=== PATIENT | female | born 1960 | race Caucasian/White ===

== ENCOUNTER 2018-04-02 09:41 | Outpatient (CLI) | payer MEDICAID, SELFPAY ==
[2018-04-02 11:03] LABS: Glucose 104 mg/dL (70-100)
== END 2018-04-02 09:42 ==
PROVIDERS: PCP General Practice; Visit Provider General Practice
DX: R73.09 Other abnormal glucose (principal)
CPT/HCPCS: 36415; 82947

== ENCOUNTER 2018-04-11 15:04 | Outpatient (REF) | payer MEDICAID, SELFPAY ==
--- NOTE | 2018-04-11 14:00 | PAPFT_PTH ---
PATIENT: Rochelle Garcia LOC: [facility] U#:[id number] AGE/SX: 57/F ROOM: RE04/11/[address]: Larisa Huang NP : 1960 BED: DIS: 04/11/2018 SPEC #: [id number] RECD: 04/11/18 17:35 STATUS: SOFY BUTCHER #: [id number] JOSE ANTONIO: 04/11/18 14:[address]: Larisa Huang NP DEPT: [facility] Cytology RECD BY: Lisa Rob ENTERED: 04/11/18 17:35 SP TYPE: PAPFT OTHR DR: Sharath Hoyos Tissues: 1 - CX/ENDOCX FOR PAP SMEARS Procedures: PAP THIN PREP/UVM Screening HPV DNA PROBE Comments: [id number]
== END 2018-04-11 15:05 ==
LOC: LBN 15:04
PROVIDERS: PCP General Practice; Visit Provider Nurse Practitioner Women's Health
DX: Z12.4 Encounter for screening for malignant neoplasm of cervix (principal); Z11.51 Encounter for screening for human papillomavirus (HPV)
CPT/HCPCS: 88142; 87624

== ENCOUNTER 2018-04-21 02:27 | Outpatient (CLI) | payer MEDICAID, SELFPAY ==
--- NOTE | 2018-04-21 11:55 | DI.REPORT_ITS ---
SYMPTOM/DIAGNOSIS: SCREENING, Z12.31 MAMMOGRAM: Mammograms were interpreted according to the usual protocol including computer analysis with CAD system, tomosynthesis and C view imaging. Comparison with prior examinations. Breast density B. No masses or microcalcifications are seen. There is nothing to suggest malignancy. IMPRESSION: Negative mammogram. Routine screening is recommended. Category I. MQSA ASSESSMENT OF FINDINGS: Negative. Category 1. Patient will receive a letter notifying them of these results. BI-RADS category B. There are scattered areas of fibroglandular density.
== END 2018-04-21 02:28 ==
PROVIDERS: PCP General Practice; Visit Provider Nurse Practitioner Women's Health
DX: Z12.31 Encounter for screening mammogram for malignant neoplasm of breast (principal)
CPT/HCPCS: 77063; 77067; 97802

== ENCOUNTER 2018-05-13 11:58 | Outpatient (CLI) | payer MEDICAID, SELFPAY ==
--- NOTE | 2018-05-13 12:00 | NS.NUTBLAN_ITS ---
Rochelel returns for follow up for weight management nutrition counseling. She reports that she notices her clothes are fitting more loosely. She has gone swimming four times since our last visit three weeks ago. She has been more mindful of her portions ans she reports that she does not go back for seconds. She states she is using the plate method as best as possible. She reports that she has had to eliminate ice cream otherwise she just has too much. Her weight today is stable at 268.8 lbs. We discussed that sometimes inches are lost before pounds. She states she is not discouraged. She reports that she feels better and she can feel the change in her body throughout her waist. She would like to return for follow up to help keep her accountable to someone. She would like to continue improving on the same action plans. Provided her with a portion plate for home as she said it would be helpful to her. Will continue to monitor her progress. Will evaluate her nutrition care plan and adjust accordingly.
== END 2018-05-13 12:18 ==
PROVIDERS: PCP General Practice; Visit Provider Dietitian, Registered
DX: E66.8 Other obesity (principal); Z68.43 Body mass index [BMI] 50.0-59.9, adult; Z71.3 Dietary counseling and surveillance
CPT/HCPCS: 97803

== ENCOUNTER 2018-06-23 11:52 | Outpatient (CLI) | payer MEDICAID, SELFPAY | END 2018-06-23 12:12 | PROVIDERS: PCP General Practice; Visit Provider General Practice | DX: I10 Essential (primary) hypertension (principal); R73.01 Impaired fasting glucose | CPT/HCPCS: 36415; 80051; 82947; 84520; 82565 ==

== ENCOUNTER 2019-10-21 10:49 | Outpatient (CLI) | payer MEDICAID, SELFPAY ==
[2019-10-21 11:26] LABS: Hemoglobin A1C 5.9 % (3.8-5.6)
[2019-10-21 11:52] LABS: ALT 25 U/L (14-59); AST 16 U/L (15-37); Albumin 3.6 g/dL (3.4-5.0); Alkaline Phosphatase 92 U/L (46-116); Anion Gap 7.6 mmol/L (3-11); BUN 12 mg/dL (7-18); Bilirubin, Total 0.5 mg/dL (0.2-1.0); CO2 29.4 mmol/L (21.0-32.0); CREATININE 0.69 mg/dL (0.55-1.02); Calculated LDL 182 mg/dL (<100); Chloride 104 mmol/L (98-107); Cholesterol 287 mg/dL (<200); Glucose 111 mg/dL (74-106); HDL Cholesterol 54 mg/dL (40-60); Potassium 4.5 mmol/L (3.5-5.1); Sodium 141 mmol/L (136-145); Total Protein 6.6 g/dL (6.4-8.2); Triglyceride 255 mg/dL (<150)
[2019-10-21 11:57] LABS: TSH (W/Ref FT4) 3.56 uIU/mL (0.36-3.74)
== END 2019-10-21 11:09 ==
PROVIDERS: PCP Nurse Practitioner; Visit Provider Nurse Practitioner
DX: E78.5 Hyperlipidemia, unspecified (principal); I10 Essential (primary) hypertension; E11.9 Type 2 diabetes mellitus without complications; E66.01 Morbid (severe) obesity due to excess calories; R73.01 Impaired fasting glucose
CPT/HCPCS: 36415; 80053; 80061; 83036; 84443

== ENCOUNTER 2020-01-12 12:26 | Outpatient (CLI) | payer MEDICAID, SELFPAY ==
--- NOTE | 2020-01-12 11:50 | DI.RAD_ITS ---
EXAM: XR KNEE RT 2V AP,LAT CLINICAL HISTORY: bilateral knee pain. TECHNIQUE: 2D digital imaging was performed. COMPARISON: CR XR KNEE LT 2V AP,LAT from 01/12/2020 FINDINGS: BONES: No acute fracture is present. Periarticular spurring is seen involving all 3 joint compartment s. JOINTS: The knee is normally aligned. Moderate narrowing of the medial femoral tibial joint space is present. SOFT TISSUE: Normal. IMPRESSION: Moderate degenerative changes of the right knee. DATA REPOSITORY: RADIATION DOSE DELIVERED:
--- NOTE | 2020-01-12 11:50 | DI.RAD_ITS ---
EXAM: XR KNEE LT 2V AP,LAT CLINICAL HISTORY: bilateral knee pain. TECHNIQUE: 2D digital imaging was performed. COMPARISON: No exams were available for comparison FINDINGS: BONES: No acute fracture is present. No bony destructive lesion is seen. Periarticular spurring is s een involving the patellofemoral joint in the lateral femoral tibial joint. JOINTS: The knee is normally aligned. There is moderate narrowing of the medial femoral tibial joint space. A small joint effusion is present. SOFT TISSUE: Normal. IMPRESSION: Degenerative changes of the left knee. DATA REPOSITORY: RADIATION DOSE DELIVERED:
== END 2020-01-12 12:46 ==
PROVIDERS: PCP Nurse Practitioner; Referring Provider Nurse Practitioner; Visit Provider Physician Assistant Surgical
DX: M25.561 Pain in right knee (principal); M25.562 Pain in left knee; M25.462 Effusion, left knee; M17.0 Bilateral primary osteoarthritis of knee
CPT/HCPCS: 73560

== ENCOUNTER 2020-03-02 01:27 | Outpatient (CLI) | payer MEDICAID, SELFPAY ==
--- NOTE | 2020-03-02 14:45 | DI.MAMMO_ITS ---
EXAM: MAMMO SCREENING CLINICAL HISTORY: screening, Z12.39 TECHNIQUE: Mammograms were interpreted according to the usual protocol including computer analysis w [employer] CAD system, tomosynthesis and C-view imaging. COMPARISON: 2014 and 2017 FINDINGS: The breasts are composed of scattered fibroglandular densities, Breast Density category B. There has been interval increase in size and density of a previously noted area of nodularity in thes e upper outer quadrant of the left breast. The appearance on previous exams suggested a lymph node. It now has a lobulated border and has increased significantly in size, measuring 11 millimeters in d iameter. There are no associated microcalcifications. No additional abnormalities are seen. Oil cy sts are again noted in the right breast. No suspicious microcalcifications are seen. No skin thickening is seen. There has been no significant change of the right breast from prior exams. IMPRESSION: BI-RADS Category 0 - Assessment Incomplete: Need additional imaging evaluation. Spot compression views and ultrasound are requested for further evaluation of a mass in the superior left breast. Breast Density Category B, scattered fibroglandular densities.
== END 2020-03-02 01:47 ==
PROVIDERS: PCP Nurse Practitioner; Visit Provider Nurse Practitioner
DX: Z12.31 Encounter for screening mammogram for malignant neoplasm of breast (principal); R92.8 Other abnormal and inconclusive findings on diagnostic imaging of breast
CPT/HCPCS: 77063; 77067

== ENCOUNTER 2020-03-11 03:50 | Outpatient (CLI) | payer MEDICAID, SELFPAY ==
--- NOTE | 2020-03-11 | DI.MAMMO_ITS ---
EXAM: MG MAMMO SCREEN CALL BACK UNI CLINICAL HISTORY: F/U MAMMO,INCREASE IN SIZE AND DENSITY OF PREV NODULARITY TECHNIQUE: Mammograms were interpreted according to the usual protocol including computer analysis w [employer] CAD system, tomosynthesis and C-view imaging. COMPARISON: FINDINGS: Additional mammographic views of the left breast and left breast ultrasound are interpreted in conjun ction. These examinations were obtained to evaluate mass of the upper outer quadrant of left breast seen on recent mammogram. Additional mammographic views confirm a solid mass with lobulated or micro lobulated contour. The breast ultrasound shows a 12 millimeter in diameter hypoechoic mass possibly containing some cystic areas, the mass is avascular, again a microlobulated contour is noted. IMPRESSION: Indeterminate 12 millimeter left upper outer quadrant mass, suspicious for neoplasm. Additional eval uation with ultrasound guided biopsy suggested. BI-RADS Category 4 - Suspicious Abnormality: Biopsy should be considered Breast Density - Category B - Scattered areas of fibroglandular density
== END 2020-03-11 04:10 ==
PROVIDERS: PCP Nurse Practitioner; Visit Provider Nurse Practitioner
DX: R92.8 Other abnormal and inconclusive findings on diagnostic imaging of breast (principal)
CPT/HCPCS: 76642; 77063; 77067

== ENCOUNTER 2020-03-22 00:57 | Outpatient (CLI) | payer MEDICAID, SELFPAY ==
--- NOTE | 2020-03-22 | DI.US_ITS ---
EXAM: US NEEDLE LOCAL BREAST WO RAD CLINICAL HISTORY: LT BREAST MASS. Right Breast. Left Breast. TECHNIQUE: Ultrasound was provided for Dr. Marte for guidance with performing a left breast biopsy . FINDINGS: Previously noted cystic lobulated lesion is again noted in the superior left breast. Post biopsy im ages no longer show the lesion. Please see procedure note for details. COMPARISON: US US BREAST LT LIMITED from 03/11/2020 MG MG MAMMO SCREEN CALL BACK UNI from 03/11/2020 IMPRESSION: Successful Ultrasound-guided Breast Biopsy.
--- NOTE | 2020-03-22 13:20 | BREAST_PTH ---
PATIENT: Rochelle Garcia LOC: [facility] U#:[id number] AGE/SX: 59/F ROOM: RE03/22/[address]: Sana Marte MD : 1960 BED: DIS: 03/22/2020 SPEC #: [id number] RECD: 03/22/20 17:47 STATUS: SOFY REShilpi #: [id number] JOSE ANTONIO: 03/22/20 13:[address]: Sana Marte DEPT: Surgical Specimen RECD BY: Lisa Rob ENTERED: 03/22/20 17:47 SP TYPE: Breast OTHR DR: Carolina Evans APRN Tissues: 1 - BREAST BX NEEDLE Procedures: GROSS AND MICRO LEVEL 4 Comments: [id number]
--- NOTE | 2020-03-22 14:24 | HPE_ITS ---
Date of service: 03/22/20 Time of Service: 13:00 Assessment and Plan Assessment and plan (1) Left breast mass: Status: Acute Assessment and plan: A\\ Left Breast mass P\\ Core needle biopsy under US guidence It was explained to the patient. Risks benefits and alternatives were reviewed. Complications were reviewed. Questions were answered to her satisfaction she wished to proceed. No guarantees were given or implied. History of Present Illness History of Present Illness Chief Complaint: Left Breast Lesion Narrative: Mrs. Garcia is a pleasant 59 year old female who was noted to had a lubulated lesion in the UOQ of the left Breast on Mammogram and US. She has never had a Breast lesion before. She has no 1st degree relatives with breast cancer. She does have a cousin who had a bilateral mastectomy for breast cancer at an earlier age. She denies any changes in the skin on the left breast or any nipple discharge. Review of Systems Cardiovascular Cardiovascular: Denies chest pain, Denies chest pain at rest, Denies irregular heart rhythm, Denies dyspnea and Denies dyspnea on exertion Respiratory Respiratory: Reports cough, Denies dyspnea and Denies dyspnea on exertion Gastrointestinal Gastrointestinal: Reports as per HPI Genitourinary Genitourinary: Denies dysuria, Reports urinary incontinence and Denies urinary urgency Integumentary/Breasts Skin/Breast: Reports system reviewed and no additional complaints, except as documented Endocrine Endocrine: Reports system reviewed and no additional complaints, except as documented Hematologic/Lymphatic Hematologic/Lymphatic: Denies easy bruising and Denies lymphadenopathy [facility] Medical History (Updated 03/14/20 @ 13:57 by Carolina Evans NP) Colon cancer screening declined (Acute) Daytime somnolence (Acute) Hyperlipidemia (Acute) Hypertension (Chronic) Left breast mass (Acute) Obesity, morbid, BMI 50 or higher Pre-diabetes (Acute) Snoring (Acute) Surgical History History of carpal tunnel release (Acute) x2 History of section (Chronic) x2 History of tonsillectomy and adenoidectomy (Acute) Social History (Updated 01/11/20 @ 16:07 by Aide Suarez LPN) Smoking/Tobacco Use Status: Former Tobacco Use Quit Date: 05/26/87 Pack-years: 12 Tobacco: How many years used: 6 Smoking risk assessment performed?: Yes Alcohol Intake: current Alcohol Intake frequency: a few times a week Alcohol type: beer and wine Drug use: Never Substance use type: does not use Adopted: No Caregiver/Support person: No Foster care: No Household members: spouse and children Housing: house Number of Children: 2 Do you need help understanding health information?: Often Sexually active: No Do you think of yourself as: straight/heterosexual Current gender identity: female What is your relationship status?: Panel score (0-1 are the most socially isolated patients): 1 What type of physical activity do you participate in: none Seatbelt use: always Meds Home Medications and Allergies Home Medications Medication Instructions Recorded Confirmed Type meloxicam 15 mg tablet 15 mg PO DAILY #90 tab 01/12/20 02/23/20 Rx labetalol 100 mg tablet 150 mg PO BID #90 tab 03/14/20 03/14/20 Rx Allergies Allergy/AdvReac Type Severity Reaction Status Date / Time hydrochlorothiazide Allergy Skin Rash Verified 03/14/20 13:40 [From Hyzaar] losartan potassium Allergy Skin Rash Verified 03/14/20 13:40 [From Hyzaar] Exam Chest Chest: normal inspection of the chest Breast inspection: normal inspection of the breasts Breast palpation: normal palpation of the breasts and no axillary lymphadenopathy Procedures Other Procedure Description/Findings: Pre-op Dx: left Breast Mass Post-op Dx: same Surgeon: Prem Marte MD Anesthesia: Local anesthesia with 1% Lidocaine Blood loss: 2 cc Specimen: Core needle biopsy Complications: no immediate complications Procedure: After informed consent was obtained the patient was placed in a supine position. US was done of the Breast and the lesion was localized by the US tech. The skin was cleaned with alcohol and infiltrated with the above local anesthetic. The skin was then prepped. An incision was made with an 11 blade. Using a 14 gauge core needle 2 specimens were removed and placed on telfa and placed in formalin. After the second core needle biopsy was done the lesion disappeared. The skin was cleaned and dried and a band aid was applied. The patient tolerated the procedure well and there were no immediate complications.
== END 2020-03-22 01:17 ==
PROVIDERS: PCP Nurse Practitioner; Visit Provider Surgery
DX: N60.32 Fibrosclerosis of left breast (principal)
CPT/HCPCS: 19083; 88305; NC; 76942

== ENCOUNTER 2020-04-07 03:15 | Outpatient (CLI) | payer MEDICAID, SELFPAY ==
[2020-04-07 12:02] LABS: Hemoglobin A1C 5.8 % (3.8-5.6)
[2020-04-07 12:15] LABS: Calculated LDL 182 mg/dL (<100); Cholesterol 281 mg/dL (<200); HDL Cholesterol 56 mg/dL (40-60); Triglyceride 219 mg/dL (<150)
== END 2020-04-07 03:35 ==
PROVIDERS: PCP Nurse Practitioner; Visit Provider Nurse Practitioner
DX: E78.5 Hyperlipidemia, unspecified (principal); E11.9 Type 2 diabetes mellitus without complications; I10 Essential (primary) hypertension
CPT/HCPCS: 36415; 80061; 83036

== ENCOUNTER 2020-06-03 03:51 | Outpatient (CLI) | payer MEDICAID, SELFPAY ==
--- NOTE | 2020-06-03 07:00 | DI.US_ITS ---
EXAM: US BREAST LT COMPLETE CLINICAL HISTORY: H/O Lt Breast mass, disapPeared after bx, ? recurrence,N63.20 TECHNIQUE: Ultrasound performed using standard protocol. COMPARISON: US US NEEDLE LOCAL BREAST WO RAD from 03/22/2020 FINDINGS: Ultrasound was performed to evaluate previously biopsied lobulated lesion of the left breast in the 1 2 o'clock position. Comparison with prior ultrasound of March 22 shows reoccurrence of the lesion, this measures about 5 x 10 by 8 millimeters in diameter, as compared to about 7 x 10 x 9 millimeters on. This remains an indeterminate lesion with low to intermediate echogenicity, multiple visible sep tations, and little if any visible vascularity. IMPRESSION: Persistence or recurrence of previously biopsied left breast mass as described above. DATA REPOSITORY:
== END 2020-06-03 04:11 ==
PROVIDERS: PCP Nurse Practitioner; Visit Provider Surgery
DX: N63.25 Unspecified lump in the left breast, overlapping quadrants (principal)
CPT/HCPCS: 76642

== ENCOUNTER 2020-06-23 01:21 | Outpatient (CLI) | payer MEDICAID, SELFPAY ==
--- NOTE | 2020-06-23 08:00 | DI.US_ITS ---
EXAM: US AXILLA LT CLINICAL HISTORY: left Breast mass, r/o axillary lymphadenopathy,N63.20 TECHNIQUE: Ultrasound performed using standard protocol. COMPARISON: US US BREAST LT COMPLETE from 06/03/2020 FINDINGS: Scanning of the left axilla was performed. There are multiple visualized lymph nodes. The largest m easures about 35 x 14 x 9 millimeters in diameter and shows normal morphology. No additional axillar y mass identified. IMPRESSION: Nonspecific appearance left axillary lymph nodes, the largest node is 35 millimeters in greatest diam eter and shows normal morphology. Malignancy not excluded the basis this examination alone. DATA REPOSITORY:
== END 2020-06-23 01:41 ==
PROVIDERS: PCP Nurse Practitioner; Visit Provider Surgery
DX: N63.20 Unspecified lump in the left breast, unspecified quadrant (principal); R59.0 Localized enlarged lymph nodes
CPT/HCPCS: 76642

== ENCOUNTER 2020-09-16 01:14 | Outpatient (CLI) | payer MEDICAID, SELFPAY ==
[2020-09-18 10:22] LABS: COVID-19 RT-PCR Result NEGATIVE (Negative)
== END 2020-09-16 01:34 ==
PROVIDERS: PCP Nurse Practitioner; Visit Provider Nurse Practitioner
DX: Z11.52 Encounter for screening for COVID-19 (principal); Z01.818 Encounter for other preprocedural examination
CPT/HCPCS: U0003

== ENCOUNTER 2020-11-15 03:51 | Outpatient (CLI) | payer MEDICAID, SELFPAY ==
[2020-11-15 14:51] LABS: HCT 46.5 % (36.0-46.0); HGB 15.4 g/dL (11.2-15.7); MCH 28.6 pg (27.0-33.0); MCHC 33.1 % (32.0-36.0); MCV 86.4 fL (80-95); MPV 9.4 fL (8.0-11.0); Platelet Count 282 10^3/uL (130-400); RBC 5.38 10^6/uL (3.93-5.22); RDW 12.5 % (11.7-14.6); RDW-SD 39.5 fL; WBC 6.64 10^3/uL (4.4-10.8)
[2020-11-15 15:30] LABS: Hemoglobin A1C 5.8 % (<5.7)
[2020-11-15 16:01] LABS: ALT 31 U/L (14-59); AST 20 U/L (15-37); Albumin 3.9 g/dL (3.4-5.0); Alkaline Phosphatase 88 U/L (46-116); Anion Gap 8.4 mmol/L (3-11); BUN 12 mg/dL (7-18); Bilirubin, Total 0.6 mg/dL (0.2-1.0); CO2 30.6 mmol/L (21.0-32.0); CREATININE 0.6 mg/dL (0.55-1.02); Calcium 9.1 mg/dL (8.5-10.1); Calculated LDL 181 mg/dL (<100); Chloride 102 mmol/L (98-107); Cholesterol 281 mg/dL (<200); Glucose 92 mg/dL (74-106); HDL Cholesterol 57 mg/dL (40-60); Potassium 4.5 mmol/L (3.5-5.1); Sodium 141 mmol/L (136-145); Total Protein 6.9 g/dL (6.4-8.2); Triglyceride 216 mg/dL (<150)
== END 2020-11-15 03:52 | disposition home or self-care (01) ==
LOC: LBO 03:51
PROVIDERS: PCP Nurse Practitioner; Visit Provider Nurse Practitioner
DX: I10 Essential (primary) hypertension (principal); E78.5 Hyperlipidemia, unspecified; E66.01 Morbid (severe) obesity due to excess calories; G47.33 Obstructive sleep apnea (adult) (pediatric)
CPT/HCPCS: 36415; 80053; 80061; 85027; 83036

== ENCOUNTER 2020-12-12 02:12 | Outpatient (CLI) | payer MEDICAID, SELFPAY ==
--- NOTE | 2020-12-12 07:45 | DI.US_ITS ---
EXAM: US BREAST LT LIMITED CLINICAL HISTORY: F/U ABNL MAMMO, LT BREAST CYST,N60.02,LT BREAST LUMP, N63.20. TECHNIQUE: Limited ultrasound of the LEFT breast was performed following today's mammogram.. COMPARISON: Prior mammograms were reviewed. This patient underwent biopsy of a left breast finding i n February 2020 which was apparently negative for malignancy. This is apparently recurred since the biop sy. Is evident on the most recent ultrasound of 06/03/2020 FINDINGS: At the peripheral 2 o'clock position there is an 8 x 3 millimeter wider than taller benign-appearing nodule which has appearance of either conglomeration microcysts or complicated cyst. It exhibits sli ghtly increased through transmission. There is no associated decreased through transmission. This has not increased in size from the ultrasound of 06/03/2020. IMPRESSION: Benign-appearing finding at 2 o'clock position which has similar size and appearance to the ultrasoun d of 06/03/2020. Decision to rebiopsy will be with patient's breast surgeon after discussion with the patient. If casper e biopsy is not performed then repeat ultrasound in 6 months is recommended, earlier if clinically in dicated BI-RADS Category 3 - 6 month - Probably Benign Finding: Recommend follow-up ULTRASOUND in 6 months Breast Density - Category B - Scattered areas of fibroglandular density Breast density Category C or D implies that the patient has dense breast tissue. Dense breast tissue can make it harder to find cancer on a mammogram. Dense breast tissue is also associated with an incr eased risk of breast cancer. This information about the result of the mammogram report was provided to the patient to raise their awareness. Use this report when you speak with the patient about their risks for breast cancer, which includes their family history. At that time, you may recommend additional screening tests (Ultrasoun d or MRI) as these tests may add significant information. A negative radiographic report should not delay biopsy if a dominant or clinically suspicious mass is present. Up to ten percent of cancers are not identified on mammography. A negative report may reinforce clinical impression. Adenosis and dense breasts may obscure an underlying neoplasm. False positive reports average 6 to 10%. Patient will receive a letter notifying them of these results.
--- NOTE | 2020-12-12 15:00 | DI.MAMMO_ITS ---
EXAM: MG MAMMO DIAGNOSTIC BI CLINICAL HISTORY: f/u abnormal mammo,N63.20,N60.02,LT BREAST CYST AND LT BREAST LUMP. TECHNIQUE: Both CC and MLO views mammographic images were obtained with [employer] an d utilizing computer aided detection (CAD). Also performed additional spot compression views of left breast COMPARISON: Prior mammograms dating back to 2014, the most recent being February 2020. This patient und erwent ultrasound-guided core biopsy of finding in the left breast on 03/22/2020 which was apparently benign. This has recurred since the biopsy. FINDINGS: There are no new significant radiograph findings in the right breast. Benign peripherally calcified oil cysts are again noted in the right breast. In the left breast the previously biopsied nodular density located superiorly is again noted, albeit smaller than on the 03/11/2020 study. No other significant focal findings seen in the left breast. There are no malignant-appearing microcalcification groups in this region or elsewhere in either [address]. There is no new architectural distortion or skin thickening-traction We then proceeded to left breast ultrasound which again reveals this finding at the relatively superf icial peripheral 2 o'clock position. Ultrasound appearance is that of wider than taller 8 x 3 millim eter complicated cyst versus small conglomeration microcysts. It exhibits neutral and increased thro ugh transmission with no worrisome decreased through transmission. IMPRESSION: 1. No radiographic evidence of malignancy in the right breast. 2. Recurrence of previously biopsied benign-appearing nodule at 2 o'clock position left breast. Appropriate follow-up will depend on discussion of this patient with her breast surgeon. This can be either followed conservatively with repeat ultrasound in 6 months or re-biopsied. BI-RADS Category 3 - 6 month - Probably Benign Finding: Recommend follow-up ULTRASOUND in 6 months Breast Density - Category B - Scattered areas of fibroglandular density Breast density Category C or D implies that the patient has dense breast tissue. Dense breast tissue can make it harder to find cancer on a mammogram. Dense breast tissue is also associated with an incr eased risk of breast cancer. This information about the result of the mammogram report was provided to the patient to raise their awareness. Use this report when you speak with the patient about their risks for breast cancer, which includes their family history. At that time, you may recommend additional screening tests (Ultrasoun d or MRI) as these tests may add significant information. A negative radiographic report should not delay biopsy if a dominant or clinically suspicious mass is present. Up to ten percent of cancers are not identified on mammography. A negative report may reinforce clinical impression. Adenosis and dense breasts may obscure an underlying neoplasm. False positive reports average 6 to 10%. Patient will receive a letter notifying them of these results.
== END 2020-12-12 02:32 ==
PROVIDERS: PCP Nurse Practitioner; Visit Provider Nurse Practitioner
DX: N60.02 Solitary cyst of left breast (principal); N63.21 Unspecified lump in the left breast, upper outer quadrant
CPT/HCPCS: 76642; 77062; 77066; G0279

== ENCOUNTER 2021-08-23 00:52 | Outpatient (CLI) | payer MEDICAID, SELFPAY ==
[2021-08-24 03:21] LABS: COVID-19 RT-PCR UVMMC Result Negative (Negative)
== END 2021-08-23 00:53 | disposition home or self-care (01) ==
LOC: LBO 00:52
PROVIDERS: PCP Nurse Practitioner; Visit Provider Nurse Practitioner
DX: Z20.822 Contact with and (suspected) exposure to COVID-19 (principal)
CPT/HCPCS: U0003

== ENCOUNTER 2021-12-27 19:01 | Outpatient (REF) | payer MEDICAID, SELFPAY ==
--- NOTE | 2021-12-27 14:30 | PAPFT_PTH ---
PATIENT: Rochelle Garcia LOC: [facility] #:[id number] AGE/SX: 61/F ROOM: RE12/27/[address]: Larisa Huang NP : 1960 BED: DIS: 12/27/2021 SPEC #: [id number] RECD: 12/28/21 13:13 STATUS: SOFY BUTCHER #: [id number] JOSE ANTONIO: 12/27/21 14:[address]: Larisa Huang NP DEPT: [facility] Cytology RECD BY: Jus Vera Tissues: 1 - CX/ENDOCX FOR PAP SMEARS Procedures: PAP THIN PREP/UVM Screening HPV DNA PROBE Comments: [id number]
== END 2021-12-27 19:02 | disposition home or self-care (01) ==
LOC: LBN 19:01
PROVIDERS: PCP Nurse Practitioner; Visit Provider Nurse Practitioner Women's Health
DX: Z12.4 Encounter for screening for malignant neoplasm of cervix (principal); Z11.51 Encounter for screening for human papillomavirus (HPV)
CPT/HCPCS: 88142; 87624

== ENCOUNTER → 2022-01-15 02:22 | Outpatient (CLI) | payer MEDICAID, SELFPAY ==
--- NOTE | 2022-01-15 08:45 | DI.MAMMO_ITS ---
Exam(s) MAMMO SCREENING EXAM: MAMMO SCREENING CLINICAL HISTORY: screening, Z12.39 TECHNIQUE: Mammograms were interpreted according to the usual protocol including computer analysis w [employer] CAD system, tomosynthesis and C-view imaging. COMPARISON: 2014 through 2020 FINDINGS: The breasts are composed of scattered fibroglandular densities, Breast Density category B. No suspicious masses or suspicious microcalcifications are seen. Stable small nodule superior left b reast. Stable benign oil right breast. No skin thickening or abnormal axillary lymph nodes are seen. There has been no significant change from prior exams. IMPRESSION: BI-RADS Cat 2 - Benign Findings Yearly screening mammography is recommended. Breast Density - Category B, scattered fibroglandular densities. A negative radiographic report should not delay biopsy if a dominant or clinically suspicious mass is present. Up to ten percent of cancers are not identified on mammography. A negative report may reinforce clinical impression. Adenosis and dense breasts may obscure an underlying neoplasm. False positive reports average 6 to 10%. Patient will receive a letter notifying them of these results.
== END ==
PROVIDERS: PCP Nurse Practitioner; Visit Provider Nurse Practitioner
DX: Z12.31 Encounter for screening mammogram for malignant neoplasm of breast (principal)
CPT/HCPCS: 77063; 77067

== ENCOUNTER 2022-01-19 01:59 | Outpatient (CLI) | payer MEDICAID, SELFPAY ==
[2022-01-19 12:31] LABS: HGB 15.1 g/dL (11.2-15.7); MCH 28.5 pg (27.0-33.0); MCHC 32.1 % (32.0-36.0); MCV 89 fL (80-95); Platelet Count 248 10^3/uL (130-400); RDW 12.8 % (11.7-14.6); RDW-SD 41.5 fL; WBC 5.87 10^3/uL (4.4-10.8)
[2022-01-19 12:43] LABS: Hemoglobin A1C 5.7 % (<5.7)
[2022-01-19 13:17] LABS: ALT 28 U/L (14-59); AST 16 U/L (15-37); Albumin 3.8 g/dL (3.4-5.0); Alkaline Phosphatase 87 U/L (46-116); Anion Gap 7.3 mmol/L (3-11); BUN 12 mg/dL (7-18); Bilirubin, Total 0.6 mg/dL (0.2-1.0); CO2 29.7 mmol/L (21.0-32.0); CREATININE 0.7 mg/dL (0.55-1.02); Calcium 9.1 mg/dL (8.5-10.1); Calculated LDL 198 mg/dL (<100); Chloride 104 mmol/L (98-107); Cholesterol 290 mg/dL (<200); Glucose 96 mg/dL (74-106); HDL Cholesterol 60 mg/dL (40-60); Potassium 4.6 mmol/L (3.5-5.1); Sodium 141 mmol/L (136-145); Total Protein 6.6 g/dL (6.4-8.2); Triglyceride 163 mg/dL (<150)
== END 2022-01-19 02:00 | disposition home or self-care (01) ==
LOC: LBO 01:59
PROVIDERS: PCP Nurse Practitioner; Visit Provider Nurse Practitioner
DX: E78.5 Hyperlipidemia, unspecified (principal); E11.9 Type 2 diabetes mellitus without complications; I10 Essential (primary) hypertension; G47.33 Obstructive sleep apnea (adult) (pediatric)
CPT/HCPCS: 36415; 80053; 80061; 85027; 83036

== ENCOUNTER 2023-01-01 02:18 | Outpatient (CLI) | payer MEDICAID, SELFPAY ==
[2023-01-01 12:39] LABS: Abs Immature Grans 0.02 10^3/uL (0.0-0.06); Absolute Basophil Count 0.05 10^3/uL (0.0-0.2); Absolute Eosinophil Count 0.19 10^3/uL (0.0-0.7); Absolute Lymphocyte Count 1.97 10^3/uL (1.2-3.4); Absolute Monocyte Count 0.55 10^3/uL (0.1-0.8); Absolute Neutrophil Count 4.02 10^3/uL (1.2-6.7); Basophils % 0.7; Eosinophils % 2.8; HCT 46.2 % (36.0-46.0); HGB 15.4 g/dL (11.2-15.7); Immature Grans % 0.3; MCH 28.9 pg (27.0-33.0); MCHC 33.3 % (32.0-36.0); MCV 87 fL (80-95); Monocytes % 8.1; Neutrophils % 59.1; Platelet Count 246 10^3/uL (130-400); RBC 5.33 10^6/uL (3.93-5.22); RDW 12.7 % (11.7-14.6); RDW-SD 39.9 fL
[2023-01-01 12:56] LABS: Hemoglobin A1C 5.7 % (<5.7)
[2023-01-01 13:10] LABS: ALT 27 U/L (14-59); AST 20 U/L (15-37); Albumin 3.7 g/dL (3.4-5.0); Alkaline Phosphatase 100 U/L (46-116); Anion Gap 4.7 mmol/L (3-11); BUN 12 mg/dL (7-18); Bilirubin, Total 0.6 mg/dL (0.2-1.0); CO2 31.3 mmol/L (21.0-32.0); CREATININE 0.7 mg/dL (0.55-1.02); Calcium 8.9 mg/dL (8.5-10.1); Calculated LDL 189 mg/dL (<100); Chloride 103 mmol/L (98-107); Cholesterol 288 mg/dL (<200); Estimated GFR 98.34 (mL/min/1.73m2); Glucose 112 mg/dL (74-106); HDL Cholesterol 61 mg/dL (40-60); Potassium 4.2 mmol/L (3.5-5.1); Sodium 139 mmol/L (136-145); Total Protein 7.1 g/dL (6.4-8.2); Triglyceride 191 mg/dL (<150)
[2023-01-02 10:20] LABS: Hepatitis C Ab w Rflx HCV PCR Negative (Negative)
== END 2023-01-01 02:19 | disposition home or self-care (01) ==
LOC: LBO 02:18
PROVIDERS: Absent Provider Nurse Practitioner; PCP Nurse Practitioner; Referring Provider Nurse Practitioner; Visit Provider Nurse Practitioner
DX: I10 Essential (primary) hypertension (principal); E78.5 Hyperlipidemia, unspecified; R73.03 Prediabetes; G47.33 Obstructive sleep apnea (adult) (pediatric); Z11.59 Encounter for screening for other viral diseases
CPT/HCPCS: 36415; 80053; 80061; 86803; 83036; 85025

== ENCOUNTER 2023-01-29 02:42 | Outpatient (CLI) | payer MEDICAID, SELFPAY ==
--- NOTE | 2023-01-29 08:00 | DI.MAMMO_ITS ---
Exam(s) MAMMO SCREENING EXAM: MAMMO SCREENING CLINICAL HISTORY: screening.Z12.39 TECHNIQUE: Bilateral full field digital CC and MLO mammographic images were obtained with 3D tomosyn thesis and utilizing computer aided detection (CAD). COMPARISON: Available for comparison. FINDINGS: Masses/Architectural Distortion: There are stable bilateral breast nodules. No suspicious nodules or areas of architectural distortion are seen. The largest nodule is in the posterior central left angel ast and appears unchanged in size. Microcalcifications: No suspicious pleomorphic-type are seen. Skin Thickening/Nipple Retraction: None. IMPRESSION: 1. No significant interval change with no specific features of malignancy noted. 2. Unless there is more urgent need, screening mammography is recommended, as per [employer] guidelines. BI-RADS Category 2 - Benign Findings Breast Density - Category B - Scattered areas of fibroglandular density Breast density category C or D implies that the patient has dense breast tissue. Dense breast tissue is very common and is not abnormal but dense breast tissue can make it harder to find cancer on a ma mmogram. Also, dense breast tissue may increase their breast cancer risk. This information about the result of the mammogram report was provided to the patient to raise their awareness. Use this report when you speak with the patient about their risks for breast cancer, which includes their family hist ory. At that time, you may recommend for more screening tests (Ultrasound or MRI) as they might be us eful based on their risk. A negative radiographic report should not delay biopsy if a dominant or clinically suspicious mass is present. Up to ten percent of cancers are not identified on mammography. A negative report may reinforce clinical impression. Adenosis and dense breasts may obscure an underlying neoplasm. False positive reports average 6 to 10%. Patient will receive a letter notifying them of these results.
== END 2023-01-29 03:02 ==
PROVIDERS: PCP Nurse Practitioner; Visit Provider Nurse Practitioner
DX: Z12.31 Encounter for screening mammogram for malignant neoplasm of breast (principal)
CPT/HCPCS: 77063; 77067

== ENCOUNTER 2024-08-04 01:37 | Outpatient (CLI) | payer MEDICAID, SELFPAY ==
--- NOTE | 2024-08-04 07:30 | DI.MAMMO_ITS ---
Exam(s) MAMMO SCREENING EXAM: MAMMO SCREENING CLINICAL HISTORY: screening,z12.39. TECHNIQUE: Bilateral full field digital CC and MLO mammographic images were obtained with 3D tomosyn thesis and utilizing computer aided detection (CAD). COMPARISON: Prior mammograms were reviewed. FINDINGS: There has been no significant change in the appearance and distribution of the fibroglandular tissue. Again noted are unchanged small nodular densities in both breasts. Also benign-appearing calcified o il cyst in the right breast. There are no new spiculated masses nor new malignant appearing microcalcification groups. There is no significant architectural distortion nor skin thickening-retraction. IMPRESSION: No radiographic evidence of malignancy. Stable benign appearing findings. BI-RADS Category 2 - Benign Findings Breast Density - Category B - Scattered areas of fibroglandular density Breast density Category C or D implies that the patient has dense breast tissue. Dense breast tissue can make it harder to find cancer on a mammogram. Dense breast tissue is also associated with an incr eased risk of breast cancer. This information about the result of the mammogram report was provided to the patient to raise their awareness. Use this report when you speak with the patient about their risks for breast cancer, which includes their family history. At that time, you may recommend additional screening tests (Ultrasoun d or MRI) as these tests may add significant information. A negative radiographic report should not delay biopsy if a dominant or clinically suspicious mass is present. Up to ten percent of cancers are not identified on mammography. A negative report may reinforce clinical impression. Adenosis and dense breasts may obscure an underlying neoplasm. False positive reports average 6 to 10%. Patient will receive a letter notifying them of these results.
== END 2024-08-04 01:57 ==
LOC: DI 01:37
PROVIDERS: PCP Nurse Practitioner; Visit Provider Nurse Practitioner
DX: Z12.31 Encounter for screening mammogram for malignant neoplasm of breast (principal); R92.323 Mammographic fibroglandular density, bilateral breasts; D24.1 Benign neoplasm of right breast
CPT/HCPCS: 77063; 77067

== ENCOUNTER 2024-11-02 13:20 | Outpatient (CLI) | payer MEDICAID, SELFPAY ==
[2024-11-02 16:37] LABS: Calculated LDL 160 mg/dL (<100); Cholesterol 259 mg/dL (<200); HDL Cholesterol 70 mg/dL (>or=50); Triglyceride 149 mg/dL (<150)
== END 2024-11-02 13:21 | disposition home or self-care (01) ==
LOC: LBO 13:20
PROVIDERS: PCP Nurse Practitioner; Visit Provider Nurse Practitioner
DX: E78.5 Hyperlipidemia, unspecified (principal)
CPT/HCPCS: 36415; 80061

== ENCOUNTER 2024-11-09 01:31 | Outpatient (CLI) | payer MEDICAID, SELFPAY ==
--- NOTE | 2024-11-09 15:30 | DI.US_ITS ---
APPROVED REPORT EXAM: Comprehensive 2D, Doppler, and color-flow Echocardiogram Patient Location: Out-Patient Computer System Validation Specialist: Chong Faye RDCS (AE) Indications: Dyspnea on exertion Other Information Study Quality: Adequate. Technically limited study due to body habitus. Conclusion Borderline concentric left ventricular hypertrophy. Ejection fraction is 60%. There are no segmenta l wall motion abnormalities. Diastolic function is normal for age Normal right ventricular size and function Both atria are normal in size There are no structural valvular abnormalities Mild mitral regurgitation Estimated right ventricular systolic pressure is 41 mmHg Ascending aorta measures 3.93 cm Wall motion Left Ventricle The left ventricle is normal size. The left ventricular systolic function is normal. The left ventric ular ejection fraction is within the normal range. Borderline concentric left ventricular hypertrophy . There is normal LV segmental wall motion. Left ventricular filling pattern is normal for age. There is no ventricular septal defect visualized. LVEF is 60%. Atria The left atrium size is normal. The right atrium size is normal. The interatrial septum is intact wit h no evidence for an atrial septal defect. Aortic Valve The aortic valve is normal in structure. Aortic valve is trileaflet. There is no aortic valvular sten osis. No aortic regurgitation is present. Mitral Valve The mitral valve is normal in structure. No evidence of mitral valve stenosis. Mild mitral regurgitat ion. Tricuspid Valve The tricuspid valve is normal in structure. There is no tricuspid valve stenosis. Trace tricuspid reg urgitation. The RVSP is 41.8 mmHg. Pulmonic Valve The pulmonary valve is normal in structure. There is no pulmonic valvular stenosis. There is no pulmo shaylee valvular regurgitation. Great Vessels The ascending aorta is mild to moderately dilated. Aortic arch is not well visualized. IVC is normal in size and collapses >50% with inspiration. Pericardium There is no pericardial effusion. 2D Dimensions IVSD d PLAX 1.17 cm F: 0.6-1.0 Ao Root d 2.89 cm F: 2.7 - 3.3 LVPW d PLAX 1.21 cm F: 0.6 - 1.0 Ao Asc Diam d 3.93 cm F: 2.3 - 3.1 LVID d PLAX 4.66 cm F: 3.8 - 5.2 LVDs 3.19 cm F: 2.2 - 3.5 LV EF Teichholz 59.6 % FS 31.60 % LV EDV (Teich) 100.3 mL LV ESV (Teich) 40.6 mL Stroke Vol Index (Teich) 28.32 M-Mode TAPSE 2.60 cm (M/F) >1.7 Auto EF LV EDV A4C 107.8 mL LV EDV A2C 112.0 mL LV EDV BP 110.5 mL LV ESV A4C 45.4 mL LV ESV A2C 48.1 mL LV ESV BP 46.8 mL LVEF(%) A4C 57.9 % LVEF(%) A2C 57.1 % LVEF(%) BP 57.6 % LV SV A4C 62.4 ml LV SV A2C 63.9 ml LV SV BP 63.7 ml LV CO A4C 3.8 L/min LV CO A2C 3.9 L/min LV CO BP 3.8 L/min HR A4C 61.02 BPM HR A2C 60.61 BPM LV EDV Index (BP) LA Volume LA Length A4C 5.2 cm LA Length A2C 4.8 cm LA Area A4C s 12.53 cm2 LA Area A2C s 12.97 cm2 LA Vol A4C A-L 25.84 mL LA Vol A2C A-L 29.80 mL LA Vol Biplane A-L 28.8 mL LA Vol/BSA A4C A-L LA Vol/BSA A2C A-L LA Vol/BSA BP A-L 13.6 mL/m2 LA Vol A4C MOD 25.1 mL LA Vol A2C MOD 28.9 mL LA Vol BP MOD 27.7 mL RA Volume RA Area A4C 8.7 cm2 RA ESV A4C (A-L) 16.0mL RA Vol/BSA A4C A-L RA Length A4C 4.0 cm RA ESV A4C (MOD) 15.1mL LV Diastology MV E' medial 0.045 (>0.07 m/s) MV E Vmax 0.96 (0.4-1.3 m/s) MV E/E' MED 21.44 (<14) MV A Vmax 0.95 (0.4-1.3 m/s) MV E' lateral 0.054 (>0.1 m/s) E/A Ratio 1.0 MV E/E' LAT 17.77 (<14) MV E' Average 0.050 m/s MV E/E'(average) 19.43 Aortic Valve AoV Vmax 1.58 m/s LVOT Vmax 1.13 m/s AoV Peak Grad 10.0 mmHg LVOT Peak Grad 5.1 mmHg AoV Area (Vmax) 1.79 cm2 LVOT VTI 0.280 m AoV VTI 0.382 m LVOT Mean Grad 2.9 mmHg AoV Mean Chava. 1.06 m/s LVOT SV 70.36 mL AoV Mean Grad 5.0 mmHg LVOT Diam s 1.75 cm AoV Area (VTI) 1.84 cm2 AV Regurg Peak Gr. 9.97 mmHg Velocity Ratio 0.72 Mitral Valve MV DT 252 (160-240 msec) Pulmonary Valve RVOT Vmax 0.72 m/s RVOT Peak Gr. 2.0 mmHg RVOT VTI 0.151 m RVOT Mean Gr. 1.0 mmHg Tricuspid Valve RA Pressure 3.00 mmHg TR Vmax 3.12 m/s TR Peak Grad 38.8 mmHg RVSP (TR) 41.8 mmHg
== END 2024-11-09 01:51 ==
LOC: DI 01:32
PROVIDERS: PCP Nurse Practitioner; Visit Provider Internal Medicine Cardiovascular Disease
DX: R06.09 Other forms of dyspnea (principal); E66.01 Morbid (severe) obesity due to excess calories; I34.0 Nonrheumatic mitral (valve) insufficiency
CPT/HCPCS: 93306

== ENCOUNTER 2024-12-03 02:33 | Outpatient (CLI) | payer MEDICAID, SELFPAY ==
[2024-12-03] MEDS: Inhaler, Assist Device 1 EACH MC (16:12)
[2024-12-03] MEDS: Levalbuterol HFA 15 GM INH 4 PUFF IH (16:13)
--- NOTE | 2024-12-16 10:22 | W.PFT ---
Date of service: 12/03/24 Time of Service: 14:38 Pulmonary Function Test Result Indications: Dyspnea Interpretation Spirometry: There is no airflow limitation. There is restrictive spirometry. No significant bronchodilator response. Lung Volumes: Normal lung volumes. Diffusion Capacity: Normal diffusion Airway Pressure: Normal aireways resistance Impression Normal pulmonary function testing. There is pseudo-restriction from an elevated BMI. Clinical Correlation therefore is recommended.
== END 2024-12-03 02:34 | disposition home or self-care (01) ==
LOC: RT 02:33
PROVIDERS: PCP Nurse Practitioner Family; Visit Provider Student in an Organized Health Care Education/Training Program
DX: R06.2 Wheezing (principal); E66.9 Obesity, unspecified
CPT/HCPCS: 94060; 94726; 94729

== ENCOUNTER 2025-01-20 02:11 | Outpatient (CLI) | payer MEDICAID, SELFPAY ==
[2025-01-20 13:58] LABS: Anion Gap 6.8 mmol/L (3-11); BUN 18 mg/dL (7-18); CO2 31.2 mmol/L (21.0-32.0); CREATININE 0.8 mg/dL (0.55-1.02); Calcium 9.4 mg/dL (8.5-10.1); Chloride 104 mmol/L (98-107); Estimated GFR 82.74 (mL/min/1.73m2); Glucose 117 mg/dL (74-106); Potassium 4.7 mmol/L (3.5-5.1); Sodium 142 mmol/L (136-145)
== END 2025-01-20 02:12 | disposition home or self-care (01) ==
LOC: LBO 02:11
PROVIDERS: PCP Nurse Practitioner Family; Visit Provider Nurse Practitioner Family
DX: I10 Essential (primary) hypertension (principal)
CPT/HCPCS: 36415; 80048

== ENCOUNTER 2025-05-10 11:40 | Outpatient (CLI) | payer MEDICAID, SELFPAY ==
--- NOTE | 2025-05-10 11:30 | RT.EKG_ITS ---
APPROVED REPORT Exam: Resting ECG Reason for Exam: HTN Patient Location: O HR:61 bpm ECG Measurements Heart Rate 61 AXIS GA 162 P 33 QRSd 89 QRS 44 QT 432 T 95 QTc 435 Conclusion Sinus rhythm...normal P axis, V-rate 50- 99 Probable left atrial enlargement...P >50mS, <-0.10mV V1 Nonspecific T abnormalities, lateral leads...T <-0.10mV, I aVL V5 V6
== END 2025-05-10 11:41 | disposition home or self-care (01) ==
LOC: DI.CARD 11:41
PROVIDERS: PCP Nurse Practitioner Family; Visit Provider Registered Nurse
DX: I10 Essential (primary) hypertension (principal); I51.7 Cardiomegaly
CPT/HCPCS: 93010